=== PATIENT | male | born 2000 | race African-American/Black ===

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

== ENCOUNTER 2023-04-16 15:47 | Inpatient (IN) | payer MEDICAID ==
[~2023-04-16] VITALS: Ht 172.7 cm; Wt 86.2 kg
[2023-04-16] MEDS ORDERED: HALOPERIDOL 5 MG TABLET PO PRN (20:15)
[2023-04-16 23:30] VITALS: BP 128/78
[2023-04-17] MEDS: LORazepam 2 MG TABLET PO PRN (00:02)
[2023-04-17] MEDS: ZOLPIDEM TARTRATE 10 MG TABLET PO PRN ×2 (00:02→20:55)
[2023-04-17] MEDS ORDERED: PRAZ2 PO (00:22)
[2023-04-17] MEDS ORDERED: QUET300T2 PO (00:22)
[2023-04-17 01:36] VITALS: BP 122/73
[2023-04-17 07:30] LABS: BASOPHILS % (AUTO) 0.4 % (0.0-2.0); EOSINOPHILS % (AUTO) 4.9 % (1.0-6.0); HEMATOCRIT 43.7 % (41-53); HEMOGLOBIN 14.2 g/dL (13.5-17.5); LYMPHOCYTES # (AUTO) 2.9 K/uL (1.0-4.8); LYMPHOCYTES % (AUTO) 28.7 % (22.0-44.0); MEAN CORPUSCULAR HGB CONC 32.5 G/dL (31.0-37.0); MEAN CORPUSCULAR VOLUME 80 fL (80-100); MONOCYTES # (AUTO) 0.6 K/uL (0.1-1.0); MONOCYTES % (AUTO) 5.6 % (2.0-9.0); NEUTROPHILS # (AUTO) 6.1 K/uL (1.8-7.7); NEUTROPHILS % (AUTO) 60.4 % (40.0-70.0); PLATELET COUNT (AUTO) 307 K/uL (150-450); RED BLOOD CELL COUNT(AUTO) 5.45 MIL/uL (4.50-5.90); RED CELL DISTRIBUTION WIDTH 14.4 % (11.5-14.5)
[2023-04-17 07:46] LABS: HEMOGLOBIN A1C 5.7 % (3.8-5.6)
[2023-04-17 07:57] LABS: ALANINE AMINOTRANSFERASE 66 U/L (12-78); ALBUMIN 3.7 g/dL (3.4-5.0); ALKALINE PHOSPHATASE 97 U/L (46-116); ANION GAP 8 mmol/L (8-16); ASPARTATE AMINOTRANSFERASE 34 U/L (15-37); BILIRUBIN,TOTAL 0.2 mg/dL (0.1-1.0); CARBON DIOXIDE 28 mmol/L (22-29); CHLORIDE 101 mmol/L (98-107); CHOL/HDL RATIO 5.3 (4.2-7.3); CHOLESTEROL 229 mg/dL (131-200); CREATININE 1.14 mg/dL (0.60-1.30); FREE T4 (FREE THYROXINE) 0.88 ng/dL (0.76-1.46); GLOMERULAR FILTR. RATE CALC > 60 mL/min (>60); GLUCOSE,RANDOM 96 mg/dL (70-110); HDL CHOLESTEROL 43 mg/dL (40-60); LDL CHOL (CALC.) 138 mg/dL (0-130); SODIUM SERUM 137 mmol/L (136-145); THYROID STIMULATING HORMONE 1.07 uIU/mL (0.36-3.74); TOTAL PROTEIN, SERUM 7.3 g/dL (6.4-8.2); TRIGLYCERIDES 239 mg/dL (15-150)
[2023-04-17 08:30] VITALS: BP 115/78
[2023-04-17] MEDS ORDERED: ONDANSETRON HCL 4 MG TABLET PO PRN (08:30)
[2023-04-17] MEDS ORDERED: ALBUTEROL SULFATE HFA 90 MCG/PUFF 8 GM INHALER IH PRN (08:30)
[2023-04-17] MEDS ORDERED: LOPERAMIDE HCL 2 MG CAPSULE PO PRN (08:30)
[2023-04-17] MEDS ORDERED: GuaiFENesin/D-METHORPHAN [SUGAR-FREE] 200-20MG/10 ML SYRUP UDCUP PO PRN (08:30)
[2023-04-17] MEDS ORDERED: DOCUSATE SODIUM 100 MG CAPSULE PO PRN (08:30)
[2023-04-17] MEDS ORDERED: ACETAMINOPHEN 325 MG TABLET PO PRN (08:30)
[2023-04-17] MEDS ORDERED: NICOTINE 14 MG/24 HOUR PATCH TD PRN (08:30)
[2023-04-17] MEDS ORDERED: PETROLATUM,WHITE 28 GM JELLY TP PRN (08:30)
[2023-04-17] MEDS ORDERED: MAGNESIUM HYDROXIDE SUSPENSION 30 ML UDCUP PO PRN (08:30)
[2023-04-17] MEDS ORDERED: MAG HYDROX/AL HYDROX/SIMETH ES 30 ML SUSPENSION UDCUP PO PRN (08:30)
[2023-04-17] MEDS ORDERED: IBUPROFEN 400 MG TABLET PO PRN (08:30)
[2023-04-17] MEDS ORDERED: CloNIDine HCL 0.1 MG TABLET PO PRN (08:30)
[2023-04-17] MEDS ORDERED: LORazepam 2 MG/ML VIAL IM ONE (11:30)
[2023-04-17] MEDS ORDERED: HALOPERIDOL LACTATE 5 MG/ML VIAL IM ONE (11:30)
[2023-04-17] MEDS ORDERED: DiphenhydrAMINE HCL 50 MG/ML VIAL IM ONE (11:30)
[2023-04-17] MEDS ORDERED: BUPR-49 PO (11:34)
[2023-04-17] MEDS ORDERED: QUET400T13 PO (11:34)
[2023-04-17] MEDS: BuPROPion HCL XL 150 MG ER TABLET PO SCH (12:02)
[2023-04-17 12:28] LABS: APPEARANCE,URINE CLEAR (CLEAR); BILIRUBIN,URINE NEGATIVE (NEGATIVE); GLUCOSE, URINE (UA) NEGATIVE (NEGATIVE); KETONES,URINE NEGATIVE (NEGATIVE); LEUKOCYTE ESTERASE ,URINE SMALL (NEGATIVE); NITRATE,URINE NEGATIVE (NEGATIVE); OCCULT BLOOD,URINE NEGATIVE (NEGATIVE); PROTEIN,URINE TRACE mg/dL (NEGATIVE); SPECIFIC GRAVITIY, URINE 1.029 (1.003-1.030); UROBILINOGEN,URINE <=1.0 mg/dL (<=1.0)
[2023-04-17 12:40] LABS: AMPHET/METH SCREEN,URINE POSITIVE (NEGATIVE); BARBITURATE SCREEN, URINE NEGATIVE (NEGATIVE); BENZODIAZEPINES SCREEN,URINE NEGATIVE (NEGATIVE); CANNABINOID SCREEN,URINE NEGATIVE (NEGATIVE); COCAINE SCREEN,URINE NEGATIVE (NEGATIVE); METHADONE SCREEN, URINE NEGATIVE (NEGATIVE); OPIATE SCREEN,URINE NEGATIVE (NEGATIVE); PHENCYCLIDINE SCREEN,URINE NEGATIVE (NEGATIVE)
[2023-04-17] MEDS ORDERED: HYDROCORTISONE 1% 30 GM OINTMENT TP PRN (12:45)
[2023-04-17 12:54] LABS: RBC,URINE 0-2 /HPF (0-2)
[2023-04-17 12:55] LABS: BACTERIA,URINE None Seen /HPF (None Seen)
[2023-04-17] MEDS: PRAZOSIN HCL 1 MG CAPSULE PO SCH (20:55)
[2023-04-17] MEDS: QUEtiapine FUMARATE 300 MG TABLET PO SCH (20:55)
[2023-04-18] MEDS ORDERED: PNEUMOCOCCAL VACCINE POLYVALENT 0.5 ML VIAL [PPSV23] IM. ONE (01:30)
[2023-04-18] MEDS: QUEtiapine FUMARATE 25 MG TABLET PO SCH (08:03)
[2023-04-18] MEDS: BuPROPion HCL XL 150 MG ER TABLET PO SCH (08:04)
[2023-04-18 08:46] VITALS: BP 113/59
[2023-04-18] MEDS: LORazepam 2 MG TABLET PO PRN ×3 (11:58→23:35)
[2023-04-18 20:29] VITALS: BP 117/66
[2023-04-18] MEDS: QUEtiapine FUMARATE 300 MG TABLET PO SCH (20:39)
[2023-04-18] MEDS: PRAZOSIN HCL 1 MG CAPSULE PO SCH (20:39)
[2023-04-18] MEDS: ZOLPIDEM TARTRATE 10 MG TABLET PO PRN (20:39)
[2023-04-19] MEDS: BuPROPion HCL XL 150 MG ER TABLET PO SCH (08:16)
[2023-04-19] MEDS: QUEtiapine FUMARATE 25 MG TABLET PO SCH (08:16)
[2023-04-19 08:35] VITALS: BP 123/60
[2023-04-19] MEDS ORDERED: QUET300T19 PO (10:38)
[2023-04-19] MEDS ORDERED: BUPR-49 PO (10:38)
[2023-04-19] MEDS ORDERED: PRAZ1 PO (10:38)
[2023-04-19] MEDS ORDERED: QUET25TA36 PO (10:38)
== END 2023-04-19 13:41 | disposition home or self-care (01) | DRG 750 ==
LOC: B3A 20:28
PROVIDERS: ADMIT Psychiatry & Neurology Psychiatry; ATTEND Psychiatry & Neurology Psychiatry
DX: F25.1 Schizoaffective disorder, depressive type (principal); R45.851 Suicidal ideations; F15.10 Other stimulant abuse, uncomplicated; F43.12 Post-traumatic stress disorder, chronic; F10.10 Alcohol abuse, uncomplicated; E78.5 Hyperlipidemia, unspecified; G47.00 Insomnia, unspecified; I10 Essential (primary) hypertension; Z79.899 Other long term (current) drug therapy; Z91.51 Personal history of suicidal behavior
CPT/HCPCS: 80053; 80061; 80307; 81001; 83036; 84439; 84443; 85025; J1200; J1630; J2060

== ENCOUNTER 2023-05-24 20:20 | Emergency (ER) | payer MEDICAID, OTHER ==
[~2023-05-24] VITALS: Ht 172.7 cm; Wt 86.8 kg
[~2023-05-24 20:20] MED LIST changes: +BUPR-49 PO; +PRAZ1 PO; -QUET200T PO; +QUET25TA36 PO; +QUET300T19 PO
[2023-05-24 22:54] LABS: BASOPHILS % (AUTO) 0.8 % (0.0-2.0); EOSINOPHILS % (AUTO) 1.3 % (1.0-6.0); HEMATOCRIT 43.5 % (41-53); HEMOGLOBIN 14.3 g/dL (13.5-17.5); LYMPHOCYTES # (AUTO) 2.9 K/uL (1.0-4.8); LYMPHOCYTES % (AUTO) 27.9 % (22.0-44.0); MEAN CORPUSCULAR VOLUME 79 fL (80-100); MONOCYTES # (AUTO) 0.7 K/uL (0.1-1.0); MONOCYTES % (AUTO) 6.6 % (2.0-9.0); NEUTROPHILS # (AUTO) 6.7 K/uL (1.8-7.7); NEUTROPHILS % (AUTO) 63.4 % (40.0-70.0); PLATELET COUNT (AUTO) 353 K/uL (150-450); RED BLOOD CELL COUNT(AUTO) 5.51 MIL/uL (4.50-5.90); RED CELL DISTRIBUTION WIDTH 14.1 % (11.5-14.5)
[2023-05-24 23:13] LABS: SALICYLATE 1.4 mg/dL (2.8-20.0)
[2023-05-24 23:21] LABS: ANION GAP 13 mmol/L (8-16); CALCIUM, TOTAL 9.7 mg/dL (8.8-10.5); CARBON DIOXIDE 26 mmol/L (22-29); CHLORIDE 98 mmol/L (98-107); GLOMERULAR FILTR. RATE CALC > 60 mL/min (>60); GLUCOSE,RANDOM 94 mg/dL (70-110); POTASSIUM 3.6 mmol/L (3.5-5.1); SODIUM SERUM 137 mmol/L (136-145)
[2023-05-24 23:23] VITALS: TEMP 98.4
[2023-05-24 23:29] LABS: ALANINE AMINOTRANSFERASE 41 U/L (12-78); ALBUMIN 4.2 g/dL (3.4-5.0); ALKALINE PHOSPHATASE 115 U/L (46-116); ASPARTATE AMINOTRANSFERASE 22 U/L (15-37); BILIRUBIN,TOTAL 0.4 mg/dL (0.1-1.0); TOTAL PROTEIN, SERUM 8.5 g/dL (6.4-8.2)
[2023-05-24 23:42] LABS: ACETAMINOPHEN < 2 mcg/mL (10-30)
[2023-05-25 00:12] LABS: APPEARANCE,URINE CLEAR (CLEAR); BILIRUBIN,URINE NEGATIVE (NEGATIVE); GLUCOSE, URINE (UA) NEGATIVE (NEGATIVE); KETONES,URINE NEGATIVE (NEGATIVE); LEUKOCYTE ESTERASE ,URINE NEGATIVE (NEGATIVE); NITRATE,URINE NEGATIVE (NEGATIVE); OCCULT BLOOD,URINE NEGATIVE (NEGATIVE); PH,URINE 6.5 (5.0-8.0); PROTEIN,URINE NEGATIVE (NEGATIVE); SPECIFIC GRAVITIY, URINE 1.006 (1.003-1.030); UROBILINOGEN,URINE <=1.0 mg/dL (<=1.0)
[2023-05-25 00:13] LABS: AMPHET/METH SCREEN,URINE POSITIVE (NEGATIVE); BARBITURATE SCREEN, URINE NEGATIVE (NEGATIVE); BENZODIAZEPINES SCREEN,URINE NEGATIVE (NEGATIVE); CANNABINOID SCREEN,URINE NEGATIVE (NEGATIVE); COCAINE SCREEN,URINE NEGATIVE (NEGATIVE); METHADONE SCREEN, URINE NEGATIVE (NEGATIVE); OPIATE SCREEN,URINE NEGATIVE (NEGATIVE); PHENCYCLIDINE SCREEN,URINE NEGATIVE (NEGATIVE)
[2023-05-25] MEDS ORDERED: LORazepam 2 MG TABLET PO PRN (00:45)
[2023-05-25] MEDS ORDERED: HALOPERIDOL 5 MG TABLET PO PRN (00:45)
[2023-05-25] MEDS ORDERED: ZOLPIDEM TARTRATE 10 MG TABLET PO PRN (00:45)
[2023-05-25 02:03] LABS: COVID AG,FIA SOURCE NASAL SWAB
[2023-05-25 20:09] VITALS: BP 130/84; PULSE 88; RESP 18
== END 2023-05-25 20:30 | disposition home or self-care (01) ==
LOC: EMS 20:22
DX: T65.92XA Toxic effect of unspecified substance, intentional self-harm, initial encounter (principal); R45.851 Suicidal ideations; F15.10 Other stimulant abuse, uncomplicated; F41.9 Anxiety disorder, unspecified; F32.A Depression, unspecified; F20.9 Schizophrenia, unspecified; F17.210 Nicotine dependence, cigarettes, uncomplicated; Z91.013 Allergy to seafood; Z91.018 Allergy to other foods; Z20.822 Contact with and (suspected) exposure to COVID-19; Y92.89 Other specified places as the place of occurrence of the external cause
CPT/HCPCS: 99285; 87426; 80053; 85025; 36415; 93005 ×2; 81003; 80307 ×2; G0480 ×2; G0481

== ENCOUNTER 2025-05-27 09:56 | Emergency (ER) | payer OTHER, SELFPAY ==
[~2025-05-27] VITALS: Ht 172.7 cm; Wt 75.1 kg
[2025-05-27 10:04] VITALS: TEMP 97.9
[2025-05-27 10:29] LABS: COVID AG,FIA SOURCE NASAL SWAB
[2025-05-27 10:35] LABS: PLATELET COUNT (AUTO) 342 K/uL (150-450); RED BLOOD CELL COUNT(AUTO) 5.59 MIL/uL (4.50-5.90); RED CELL DISTRIBUTION WIDTH 15.5 % (11.5-14.5); WHITE BLOOD COUNT (AUTO) 12.0 K/uL (4.5-11.0)
[2025-05-27 10:38] LABS: CALCIUM, TOTAL 9.9 mg/dL (8.8-10.5); CREATININE 1.25 mg/dL (0.60-1.30); GLOMERULAR FILTR. RATE CALC > 60 mL/min (>60); GLUCOSE,RANDOM 94 mg/dL (70-110); SODIUM SERUM 138 mmol/L (136-145); UREA NITROGEN, BLOOD 11 mg/dL (7-18)
[2025-05-27 10:55] LABS: SARS-COV2 (COVID) ANTIGEN,FIA Negative (Negative)
[2025-05-27 11:20] VITALS: BP 98/48; PULSE 98; RESP 21; O2SAT 100
== END 2025-05-27 11:55 ==
LOC: EMS 09:56
DX: F20.9 Schizophrenia, unspecified (principal); F15.10 Other stimulant abuse, uncomplicated; F32.A Depression, unspecified; F41.9 Anxiety disorder, unspecified; F17.210 Nicotine dependence, cigarettes, uncomplicated; Z91.030 Bee allergy status; Z79.899 Other long term (current) drug therapy; Z91.018 Allergy to other foods; Z91.013 Allergy to seafood; Z20.822 Contact with and (suspected) exposure to COVID-19
CPT/HCPCS: 99285; 87426; 80048; 85025; 36415; G0480; 99283